=== PATIENT | male | born 1960 | race Caucasian/White ===

== ENCOUNTER → 2016-11-17 | Outpatient (CLI) | payer BC ==
--- NOTE | 2016-11-17 07:46 | MR ---
EXAMINATION TYPE: MR brain/cspine wo DATE OF EXAM: 11/17/2016 7:28 AM COMPARISON: NONE HISTORY: Headaches and neck pain per order. Shooting neck pain into had with headaches as well as margot ateral arm pain or weakness per patient. Additional symptoms of blurred vision per patient. TECHNIQUE: Multiplanar, multisequence imaging of the cervical spine, brain, and brainstem are all per formed without IV contrast. FINDINGS: BRAIN: Diffusion weighted images demonstrate no evidence of a recent infarct or other diffusion abnormality. There is extra-axial CSF prominence consistent with asymmetric left temporal lobe atrophy or adjacent curvilinear arachnoid cyst anterior middle cranial fossa on axial image 11r measuring approximately 2.0 x 0.6 cm. The ventricular system and cisternal spaces are normal in size and appearance. The br ain volume is age appropriate. There are some scattered foci of T2 hyperintensity seen throughout the white matter bilaterally. Approximately 15 scattered lesions are felt present all measuring 5 mm or smaller in size for reference 5-7 lesions are seen on axial image 19, left greater than right. Midline structures demonstrate normal morphology. The craniocervical junction appears within normal limits. Normal vascular flow voids are present. The globes are intact bilaterally. There is mild muco ramos thickening involving inferior maxillary and bilateral ethmoid sinuses as well as inferior right f rontal sinus. IMPRESSION: 1. Mild nonspecific white matter changes presumed on basis of product of chronic small vessel ischemi c change in patient of this age. 2. Asymmetric left temporal lobe atrophy versus small eccentric left arachnoid cyst with local adjace nt mass effect. C-SPINE: FINDINGS: Sagittal images of the cervical spine show the craniocervical junction to appear within nor mal limits. The cervical and upper thoracic spinal cord is normal in course, caliber, and signal. V ertebral alignment is anatomic. The vertebral body and intravertebral disk heights are normal. No s ignificant posterior disc herniations are seen on sagittal images. The bone marrow signal intensity i s within normal limits. No significant spurring is seen. Axial images show there is no significant focal disk disease, spinal canal stenosis, neural foraminal narrowing, or spinal cord compromise at any cervical level. IMPRESSION: Negative MRI of the cervical spine, no significant abnormality is seen to account for nicolas mariscal's clinical symptoms.
--- NOTE | 2016-11-17 08:06 | MR ---
EXAMINATION TYPE: MR shoulder LT wo con DATE OF EXAM: 11/17/2016 7:27 AM COMPARISON: NONE HISTORY: left shoulder pain per order. Pain with difficulty raising arm overhead for 6 months per pat ient. TECHNIQUE: Multiplanar, multisequence imaging of the left shoulder is performed without contrast. FINDINGS: Rotator Cuff: There is high-grade partial articular surface involving anterior fibers of the distal s upraspinatus tendon Measuring 14 mm in anterior posterior dimension on parasagittal image 5 x 6 mm in transverse dimension on paracoronal image 9. Minimal remnant fibers are felt to remain present. Ther e is some increased signal in distal infraspinatus tendon without suspicious partial or full-thicknes s tear. Subscapularis tendon is intact. Rotator cuff muscle bulk is preserved. Acromioclavicular Joint: There is moderate capsular hypertrophy and mild to moderate spurring at acro mioclavicular joint. There is loss inferior fat plane suggesting underlying impingement. Distal acrom ion morphology is maintained. Glenohumeral Joint: No significant joint effusion or spurring is present. Joint space loss is present . Labrum: The labrum appears grossly intact given limitation of non-arthrogram study. Biceps Tendon: The long head of biceps is in normal location within bicipital groove. Bone marrow signal: There is prominent subchondral cyst measuring 1 cm in the superior lateral alex l head. Other: Moderate fluid subdeltoid/subacromial bursa is noted, consistent with bursitis or at least hig h-grade partial rotator cuff tear. Former is favored given lack of glenohumeral joint effusion. IMPRESSION: 1. Significant high-grade articular near full-thickness tear of the supraspinatus tendon. 2. Moderate osteoarthritic changes at acromioclavicular joint with suggestion of underlying impingeme nt. 3. Moderate subdeltoid/subacromial bursitis.
== END | disposition home or self-care (01) ==
LOC: RADMRIMAIN 06:16
PROVIDERS: ATTEND Internal Medicine
DX: M19.012 Primary osteoarthritis, left shoulder (principal); M75.102 Unspecified rotator cuff tear or rupture of left shoulder, not specified as traumatic; M54.2 Cervicalgia; R51 Headache
CPT/HCPCS: 70551; 72141

== ENCOUNTER → 2017-03-17 | Outpatient (CLI) | payer BC ==
--- NOTE | 2017-03-17 07:53 | MR ---
EXAMINATION TYPE: MR angio head wo/neck wo/w con DATE OF EXAM: 03/17/2017 COMPARISON: NONE HISTORY: cerebral aneurysm carotid stenosis TECHNIQUE: Utilizing 3-D [id number] intracranial MRA of the [place] was performed. FINDINGS: The vertebrobasilar and carotid systems are patent. There is no sizable aneurysm or vascular malform ation. IMPRESSION: 1. No evidence of vascular malformation or sizable aneurysm. EXAMINATION TYPE: MR angio neck wo/w con DATE OF EXAM: 03/17/2017 COMPARISON: NONE HISTORY: cerebral aneurysm carotid stenosis CONTRAST: Standard multiplanar, multisequence MRI departmental protocol utilizing 20 mL intravenous MultiHance gadolinium contrast. FINDINGS: Carotid bifurcations appear to be patent bilaterally. Vertebral arteries appear to be symme tric. Origins of the great vessels appear to be patent. There appears to be no significant stenosis involving the carotid by 5 patient IMPRESSION: No significant hemodynamic stenosis.
== END | disposition home or self-care (01) ==
LOC: RADMRIMAIN 06:18
PROVIDERS: ATTEND Psychiatry & Neurology Neurology
DX: I67.1 Cerebral aneurysm, nonruptured (principal); I65.29 Occlusion and stenosis of unspecified carotid artery; R90.82 White matter disease, unspecified
CPT/HCPCS: 70544; 70549; A9577

== ENCOUNTER → 2017-11-13 | Outpatient (CLI) | payer BC ==
--- NOTE | 2017-11-13 09:37 | US ---
EXAMINATION TYPE: US scrotum with doppler. Grayscale and color Doppler Duplex imaging performed of alem harper scrotum. DATE OF EXAM: 11/13/2017 COMPARISON: NONE CLINICAL HISTORY: N50.8 testicular pain. EXAM MEASUREMENTS: TESTICLES: Right Testicle: 3.8 x 2.3 x 3.0 cm Left Testicle: 4.9 x 2.1 x 2.9 cm EPIDIDYMIS HEAD: Right Epididymis: 0.9 x 0.8 cm Left Epididymis: 1.1 x 0.9 cm Doppler performed to assess for testicular vascularity; good bilateral color flow and waveforms are s een. There is no evidence of testicular torsion. Presence of hydroceles: small amount of fluid around both testicles. Presence of varicoceles: bilateral small amount of varicoceles. scanned just to superior to right side of scrotal sac where pt feels pain, no definite abnormality de tected. IMPRESSION: 1. Small bilateral hydrocele and varicoceles.
--- NOTE | 2017-11-13 12:26 | US ---
EXAMINATION TYPE: US prostate transrectal DATE OF EXAM: 11/13/2017 COMPARISON: NONE CLINICAL HISTORY: N40.1 BPH. This examination was performed using the transrectal probe. EXAM MEASUREMENTS: Gland Size: 6.1 x 2.7 x 3.9 cm Volume: 33.8 ml Predicted PSA: 4.06 Actual PSA (if available): 0.75 calcified central zone, heterogeneous peripheral zone without any definite mass or lesion seen. IMPRESSION: Diffusely heterogenous prostate gland with a mildly nodular contour gland with no discre te suspicious sonographic focal lesion.
== END | disposition home or self-care (01) ==
LOC: RADUSMAIN 08:19
PROVIDERS: ATTEND Internal Medicine
DX: N43.3 Hydrocele, unspecified (principal); I86.1 Scrotal varices; N40.2 Nodular prostate without lower urinary tract symptoms
CPT/HCPCS: 76870; 76872; 93975

== ENCOUNTER 2024-06-16 18:15 | Emergency (ER) | payer MEDICARE ==
--- NOTE | 2024-06-16 19:47 | ED ---
Upper Extremity HPI - General Chief Complaint: Extremity Injury, Upper Stated Complaint: L shoulder injury Time Seen by Provider: 06/16/24 19:44 Source: patient, RN notes reviewed Mode of arrival: ambulatory Limitations: no limitations - History of Present Illness Initial Comments: 64-year-old male presenting with left shoulder injury 2 hours ago. States he was lifting and AC machine out of the window, her water leaked out and he slipped and fell, landing directly onto his left shoulder. States pain is constant in the left anterior shoulder. States he cannot lift his arm. Denies head injury or loss of consciousness. Denies other injuries. - Related Data Previous Rx's Medication Instructions Recorded methocarbamoL [Robaxin] 500 mg PO TID PRN #15 tab 06/16/24 Allergies Allergy/AdvReac Type Severity Reaction Status Date / Time ibuprofen [From Motrin] Allergy Unknown Verified 06/16/24 19:00 Review of Systems ROS Statement: Those systems with pertinent positive or pertinent negative responses have been documented in the HPI. ROS Other: All systems not noted in ROS Statement are negative. Past Medical History Past Medical History: GERD/Reflux, Osteoarthritis (OA) Past Surgical History: Appendectomy, Orthopedic Surgery Smoking Status: Current every day smoker Past Alcohol Use History: None Reported Past Drug Use History: None Reported General Exam Limitations: no limitations General appearance: alert, in no apparent distress Head exam: Present: atraumatic, normocephalic, normal inspection Neck exam: Present: normal inspection. Absent: tenderness, meningismus, lymphadenopathy Respiratory exam: Present: normal lung sounds bilaterally. Absent: respiratory distress, wheezes, rales, rhonchi, stridor, chest wall tenderness Cardiovascular Exam: Present: regular rate, normal rhythm, normal heart sounds. Absent: systolic murmur, diastolic murmur, rubs, gallop, clicks Left Shoulder Exam: Present: normal inspection (Patient is hold guarding left arm in flexed position, left shoulder is asymmetrical to right shoulder), tenderness (Tenderness in anterior aspect of left shoulder). Absent: full ROM (Limited range of motion of left shoulder), swelling, abrasion, laceration, deformity, erythema Upper Arm exam: Present: normal inspection, full ROM. Absent: tenderness, swelling Elbow exam: Present: normal inspection, full ROM. Absent: tenderness, swelling Forearm Wrist exam: Present: normal inspection, full ROM. Absent: tenderness, swelling Hand Wrist exam: Present: normal inspection, full ROM. Absent: tenderness, swelling Vascular: Present: normal capillary refill, radial pulse. Absent: vascular compromise Neurological exam: Present: alert, oriented X3 Psychiatric exam: Present: normal affect, normal mood Skin exam: Present: warm, dry, intact, normal color. Absent: rash Course Vital Signs 06/16/24 06/16/24 06/16/24 19:01 20:55 22:08 Temperature 98.4 F 97.9 F Pulse Rate 83 88 84 Respiratory 18 18 18 Rate Blood Pressure 183/91 169/89 148/98 O2 Sat by Pulse 96 94 L 98 Oximetry 06/16/24 22:11 Temperature Pulse Rate 89 Respiratory 18 Rate Blood Pressure 164/73 O2 Sat by Pulse 97 Oximetry Procedures - Orthopedic Joint Reduction Joint #1 Consent Obtained: verbal consent Side: left Joint Reduction Location: shoulder Analgesia: procedural sedation Shoulder Technique Used (if applicable): traction/counter-traction, external rotation Post-Reduction Neuro Exam: intact Post-Reduction Vascular Exam: intact Post Reduction X-Ray Obtained: Yes (Improved anatomical alignment of left shoulder) Post Reduction X-Ray Results: reduced Splint Applied: Yes (sling) Patient Tolerated Procedure: well, no complications Medical Decision Making - Medical Decision Making Was pt. sent in by a medical professional or institution (CHARLOTTE Avalos, FOAMING MACHINE OPERATOR, urgent care, hospital, or senior living...) When possible be specific @ -No Did you speak to anyone other than the patient for history (EMS, parent, family, police, friend...)? What history was obtained from this source @ -No Did you review nursing and triage notes (agree or disagree)? Why? @ -I reviewed and agree with nursing and triage notes Were old charts reviewed (outside hosp., previous admission, EMS record, old EKG, old radiological studies, urgent care reports/EKG's, senior living records)? Report findings @ -No old charts were reviewed Differential Diagnosis (chest pain, altered mental status, abdominal pain women, abdominal pain men, vaginal bleeding, weakness, fever, dyspnea, syncope, headache, dizziness, GI bleed, back pain, seizure, CVA, palpatations, mental health, musculoskeletal)? @ -Differential Musculoskeletal Muscular strain, contusion, ligament sprain, fracture, arthritis, septic arthritis, bursitis, cellulitis, muscle spasm, nerve compression, DVT, arterial occlusion, herpes zoster, electrolyte abnormality, tumor.... This is not meant to be in all inclusive list EKG interpreted by me (3pts min.). @ -None X-rays interpreted by me (1pt min.). @ -X-ray left shoulder reveals anterior/inferior left shoulder dislocation CT interpreted by me (1pt min.). @ -None done U/S interpreted by me (1pt. min.). @ -None done What testing was considered but not performed or refused? (CT, X-rays, U/S, labs)? Why? @ -None What meds were considered but not given or refused? Why? @ -None Did you discuss the management of the patient with other professionals (professionals i.e. , PA, FOAMING MACHINE OPERATOR, lab, RT, psych nurse, social and political studies professor, pit supervisor, teacher, [employer] revenue officer, registered nurse hh case manager)? Give summary @ -No Was smoking cessation discussed for >3mins.? @ -No Was critical care preformed (if so, how long)? @ -No Were there social determinants of health that impacted care today? How? (Homelessness, low income, unemployed, alcoholism, drug addiction, transportation, low edu. Level, literacy, decrease access to med. care, care home, rehab)? @ -No Was there de-escalation of care discussed even if they declined (Discuss DNR or withdrawal of care, Hospice)? DNR status @ -No What co-morbidities impacted this encounter? (DM, HTN, Smoking, COPD, CAD, Cancer, CVA, ARF, Chemo, Hep., AIDS, mental health diagnosis, sleep apnea, morbid obesity)? @ -None Was patient admitted / discharged? Hospital course, mention meds given and route, prescriptions, significant lab abnormalities, going to OR and other pertinent info. @ -Discharge. This is a 64-year-old male presenting with left shoulder injury prior to arrival. Neurovascular intact. Left shoulder is asymmetrical to right shoulder on examination. Neurovascularly intact. Patient is provided with with analgesics during workup. X-ray reveals anterior/inferior left shoulder dislocation. Conscious sedation was performed with Dr. Ortega using propofol. Traction and external rotation used to successfully reduce shoulder. Neurovascularly intact status post reduction. Postreduction x-ray reveals improved alignment. Sling was applied. Patient was monitored for 45 minutes status post procedure with no complications. Discussed supportive care. A dvised to avoid flexing shoulder above head for 2 weeks. Orthopedic follow-up given. Discharged in stable condition. Case was discussed with my ED attending Dr. Ortega. Undiagnosed new problem with uncertain prognosis? @ -No Drug Therapy requiring intensive monitoring for toxicity (Heparin, Nitro, Insulin, Cardizem)? @ -No Were any procedures done? @ -Yes, reduction of left shoulder Diagnosis/symptom? @ -Left shoulder dislocation Acute, or Chronic, or Acute on Chronic? @ -Acute Uncomplicated (without systemic symptoms) or Complicated (systemic symptoms)? @ -Uncomplicated Side effects of treatment? @ -No Exacerbation, Progression, or Severe Exacerbation? @ -No Poses a threat to life or bodily function? How? (Chest pain, [place], [place], pneumonia, PE, COPD, DKA, ARF, appy, cholecystitis, CVA, Diverticulitis, Homicidal, Suicidal, threat to staff... and all critical care pts) @ -No Disposition Clinical Impression: Dislocation of left shoulder joint Disposition: HOME SELF-CARE Condition: Stable Instructions (If sedation given, give patient instructions): Shoulder Dislocation (ED), Moderate Sedation (ED) Additional Instructions: Take anti-inflammatories and muscle relaxers as needed for pain. Do not left shoulder above head for 2 weeks. Wear shoulder sling for 2 weeks. Follow-up with orthopedics in 5 to 10 days. Please return to the Emergency Department if symptoms worsen or any other concerns. Prescriptions: methocarbamoL [Robaxin] 500 mg PO TID PRN #15 tab PRN Reason: muscle spasms Is patient prescribed a controlled substance at d/c from ED?: No Referrals: None,Stated [Primary Care Provider] - 1-2 days Eduardo Rodriguez MD [STAFF PHYSICIAN] - 1-2 days Time of Disposition: 23:15
[2024-06-16] MEDS: MORPHINE SULFATE 4 MG/ML SYRINGE IM STA (19:57)
[2024-06-16 20:56] VITALS: TEMP 97.9
--- NOTE | 2024-06-16 21:36 | XR ---
EXAMINATION TYPE: XR shoulder complete LT DATE OF EXAM: 06/16/2024 8:07 PM CLINICAL INDICATION:Male, 64 years old with history of left shoulder injury; [facility] COMPARISON: None TECHNIQUE: XR shoulder complete LT; shoulder was examined in AP, internally rotated and scapular Y p rojections. FINDINGS: Anterior-inferior dislocation of the humeral head from the bony glenoid. No discrete fracture identif ied on these views. The A/C joint shows mild degenerative changes but looks to be maintained. Soft ti ssues are unremarkable. IMPRESSION: Anterior-inferior left shoulder dislocation. [facility], , 06/16/2024 9:34 PM
[2024-06-16] MEDS: PROPOFOL 10 MG/ML 20 ML VIAL IV ONE (22:14)
[2024-06-16 23:43] VITALS: BP 151/85; PULSE 77; RESP 21
--- NOTE | 2024-06-17 00:04 | XR ---
EXAM: XR Left Shoulder Complete, 2 or More Views CLINICAL HISTORY: XR Reason: post reduction TECHNIQUE: Two or more views of the left shoulder. COMPARISON: No relevant prior studies available. FINDINGS: Bones/joints: The proximal left humerus is intact and normally positioned with respect to the glenoid. Mild narrowing and osteophytosis of the glenohumeral and acromioclavicular joints consistent with mild osteoarthritis. No fracture is identified on this single AP view. No dislocation. Soft tissues: Unremarkable. IMPRESSION: 1. The proximal left humerus is intact and normally positioned with respect to the glenoid. 2. Mild narrowing and osteophytosis of the glenohumeral and acromioclavicular joints consistent with mild osteoarthritis. No fracture is identified on this single AP view.
== END 2024-06-16 23:39 | disposition home or self-care (01) ==
LOC: EC 18:15
CPT/HCPCS: 23650; 96372; 99283